=== PATIENT | male | born 1970 | race Caucasian/White ===

== ENCOUNTER 2016-10-23 06:57 | Day surgery (SDC) | payer OTHER ==
[2016-10-23] MEDS ORDERED: Lactated Ringers 1,000 ML IV SCH (07:30)
[2016-10-23] MEDS ORDERED: fentaNYL 100 MCG/2 ML SDV ONE (08:23)
[2016-10-23] MEDS ORDERED: Propofol 200 MG/20 ML SDV ONE (08:23)
[2016-10-23] MEDS ORDERED: Midazolam 1 MG/ML 2 ML SDV ONE (08:23)
[2016-10-23 10:21] VITALS: BP 136/81
--- NOTE | 2016-10-26 11:54 | OR ---
DATE OF PROCEDURE: 10/23/2016 PREOPERATIVE DIAGNOSES: Blood in stool and history of colon polyps. POSTOPERATIVE DIAGNOSES: Small transverse colon polyp, blood in stool, and history of colon polyps. PROCEDURE: Colonoscopy to the cecum with biopsy resection of transverse colon polyp. ANESTHESIA: IV anesthesia with monitored anesthesia care. INDICATION: This 46-year-old white male is referred for a colonoscopy because of blood in his stool. He has a history of a colonoscopy he says three years ago when he passed a lot of blood and a polyp was found and removed. I counseled him for a colonoscopy with possible biopsy and/or polypectomy including risks and alternatives, and he gave his informed consent to proceed. DESCRIPTION OF PROCEDURE: The patient was placed in the left lateral decubitus position. IV anesthesia was administered by the Anesthesia Service. Time-out was held. A rectal exam was performed, which was unremarkable. The flexible video Olympus colonoscope was introduced through his anus, up his rectum, and out his colon all way to the cecum. En route in the transverse colon, we saw a small polyp, which was removed with a couple of bites of the biopsy forceps. Once the cecum was reached, the scope was slowly withdrawn, examining the mucosa throughout. No additional mucosal abnormalities were noted. The scope was retroflexed in rectum with the distal rectum appearing unremarkable. The scope was straightened and removed. He tolerated the procedure well. Timothy Espinoza MD /[id number] MTDD
== END 2016-10-23 10:10 | disposition home or self-care (01) ==
LOC: JP.SDS 06:57
PROVIDERS: ATTEND Surgery
DX: Z12.11 Encounter for screening for malignant neoplasm of colon (principal); D12.3 Benign neoplasm of transverse colon; E66.9 Obesity, unspecified; K21.9 Gastro-esophageal reflux disease without esophagitis
CPT/HCPCS: 45380; J2250; J2704; J3010; J7120; 88305

== ENCOUNTER 2020-01-22 06:49 | Day surgery (SDC) | payer OTHER ==
[2020-01-22] MEDS ORDERED: fentaNYL 100 MCG/2 ML SDV ONE (07:16)
[2020-01-22] MEDS ORDERED: Midazolam 1 MG/ML 2 ML SDV ONE (07:16)
[2020-01-22] MEDS ORDERED: Propofol 200 MG/20 ML SDV ONE ×2 (07:16→08:24)
[2020-01-22] MEDS ORDERED: Sodium Chloride 0.9% 1,000 ML IV SCH (07:30)
[2020-01-22 09:42] VITALS: BP 121/67; PULSE 50
--- NOTE | 2020-01-24 07:22 | OR ---
DATE OF PROCEDURE: 01/22/2020 SURGEON: Jigar Perez MD PROCEDURE: Colonoscopy. FINDINGS: Descending colon polyp, approximately 1 cm, completely removed using hot snare wire device. COMPLICATIONS: None. INDUSTRIAL MAINTENANCE REPAIRER: None. ANESTHESIA: MAC. PREOPERATIVE DIAGNOSES: History of colon polyps. POSTOPERATIVE DIAGNOSES: History of colon polyps. RISKS: Risks, benefits, alternatives, and limitations including, but not limited to infection, bleeding, and perforation were explained to the patient, who wished to proceed. PROCEDURE IN DETAIL: The patient was placed in left lateral decubitus position. Digital rectal exam was performed without abnormality. The scope was introduced and advanced atraumatically to the ileocecal valve. A photo was taken. The scope was brought back through the ascending, transverse, descending colon, and retroflexed. The aforementioned polyp was identified and completely removed using the wire. No abnormal bleeding was noted. No abnormalities on retroflexion. No evidence of colitis. No diverticulosis. No other abnormalities. The patient tolerated the procedure well. Jigar Perez MD /[id number]
== END 2020-01-22 09:45 | disposition home or self-care (01) ==
LOC: JP.SDS 06:49
PROVIDERS: ATTEND Surgery
DX: Z12.11 Encounter for screening for malignant neoplasm of colon (principal); K63.5 Polyp of colon; I10 Essential (primary) hypertension; Z86.010 Personal history of colon polyps
CPT/HCPCS: 45385; J2250; J2704; J3010; J7030